=== PATIENT | female | born 1990 | race Caucasian/White ===

== ENCOUNTER → 2016-08-30 | Outpatient (CLI) | payer OTHER ==
[~2016-08-30] MED LIST: CEPHALEXIN250 M1 PO; DEPO-PROVER150 MG/M1 IM
== END ==
LOC: COL.RAD 08:54
DX: R94.5 Abnormal results of liver function studies (principal); K76.0 Fatty (change of) liver, not elsewhere classified; Z90.49 Acquired absence of other specified parts of digestive tract

== ENCOUNTER → 2017-10-09 | Outpatient (CLI) | payer OTHER | LOC: COL.RAD 10:07 | DX: Z31.41 Encounter for fertility testing (principal) ==